=== PATIENT | male | born 1970 | race Caucasian/White ===

== ENCOUNTER 2019-01-26 08:41 | Emergency (ER) | payer OTHER ==
[~2019-01-26] VITALS: Ht 172.7 cm; Wt 68.0 kg
[~2019-01-26 08:41] MED LIST: ADVIL200 M1 PO; HYDROCODON-ACE1 EAC7 PO; IBUPROFEN 800800 M1 PO; IBUPROFEN 800800 MG PO; MS CONTIN 60 MG60 M1 PO; NAPROSYN500 MG PO; PENICILLIN V P500 MG PO; PERCOCET PO; VICODIN 5-5001 EACH PO
[2019-01-26] MEDS ORDERED: PREDNISONE50 MG PO (09:40)
[2019-01-26] MEDS ORDERED: ZPAK PO (09:40)
[2019-01-26] MEDS ORDERED: VENTOLIN HFA 1818 GM INH (09:40)
[2019-01-26 09:50] VITALS: BP 113/75
== END 2019-01-26 09:50 | disposition home or self-care (01) ==
LOC: M.ERS 08:41
DX: J40 Bronchitis, not specified as acute or chronic (principal); F17.210 Nicotine dependence, cigarettes, uncomplicated; Z90.49 Acquired absence of other specified parts of digestive tract; Z88.5 Allergy status to narcotic agent

== ENCOUNTER 2021-10-01 09:42 | Emergency (ER) | payer BC ==
[~2021-10-01] VITALS: Ht 172.7 cm; Wt 68.0 kg
[~2021-10-01 09:42] MED LIST changes: +AZITHROMYCIN 2250 MG PO; +PREDNISONE 10 M10 M1 PO; +PREDNISONE50 MG PO; +VENTOLIN HFA 1818 GM INH; +ZPAK PO
[2021-10-01] MEDS ORDERED: IBU800 MG PO (11:02)
[2021-10-01] MEDS ORDERED: FLEXERIL PO (11:02)
[2021-10-01 11:25] VITALS: BP 124/77
== END 2021-10-01 11:26 | disposition home or self-care (01) ==
LOC: M.ERS 09:42
DX: S60.221A Contusion of right hand, initial encounter (principal); F17.210 Nicotine dependence, cigarettes, uncomplicated; Z90.49 Acquired absence of other specified parts of digestive tract; W22.8XXA Striking against or struck by other objects, initial encounter; Y93.89 Activity, other specified; Y92.89 Other specified places as the place of occurrence of the external cause; Y99.8 Other external cause status